=== PATIENT | female | born 1970 ===

== ENCOUNTER 2023-11-01 05:30 | Day surgery (SDC) | payer OTHER ==
[2023-11-01] MEDS ORDERED: CEFAZOLIN SODIUM 1,000 MG VIAL IV ONE (09:30)
== END 2023-11-01 11:00 | disposition home or self-care (01) ==
LOC: CIR.AMB 05:30
PROVIDERS: ATTEND Surgery Surgery of the Hand
DX: M67.844 Other specified disorders of tendon, left hand (principal); Z88.6 Allergy status to analgesic agent; Z91.013 Allergy to seafood